=== PATIENT | female | born 1985 | race Caucasian/White ===

== ENCOUNTER 2025-06-27 09:31 | Emergency (ER) | payer OTHER ==
[~2025-06-27] VITALS: Ht 157.5 cm; Wt 99.8 kg
[~2025-06-27 09:31] MED LIST: ACET500 PO; AMOCLA875 PO
== END 2025-06-27 13:21 | disposition home or self-care (01) ==
LOC: ER 09:31
DX: S51.851A Open bite of right forearm, initial encounter (principal); W54.0XXA Bitten by dog, initial encounter
CPT/HCPCS: 73090; 99283-25